=== PATIENT | female | born 1995 | race Caucasian/White ===

== ENCOUNTER 2016-09-07 13:25 | Emergency (ER) | payer OTHER ==
[~2016-09-07] VITALS: Ht 170.2 cm; Wt 62.1 kg
[2016-09-07] MEDS ORDERED: fentaNYL 100 MCG/2 ML INJECTION (J3010) IV ONE (15:45)
[2016-09-07] MEDS ORDERED: NS 1,000 ML IV ONE (15:45)
[2016-09-07] MEDS ORDERED: PROPOFOL 200 MG/20 ML VIAL IV ONE ×2 (15:45→16:15)
[2016-09-07 16:53] VITALS: BP 136/87
--- NOTE | 2016-10-07 19:52 | RO ---
DATE OF PROCEDURE: 09/07/2016 PREOPERATIVE DIAGNOSIS: Food impaction in the esophagus. POSTOPERATIVE DIAGNOSIS: Food impaction in the esophagus. PROCEDURE: Upper gastrointestinal (GI) endoscopy, removal of impacted food. SURGEON: Dr. Edy Hagen [employer] IN[employer]ER: ANESTHESIA: Monitored anesthesia care provided by emergency room physician. ESTIMATED BLOOD LOSS: None. The emergency room physician is Dr. Shasta Syed. DESCRIPTION OF PROCEDURE: Ms. Clements is a healthy 21-year-old female who presented to the emergency room with a sensation of food stuck in her throat. She was eating some grilled chicken early during the day. The patient noticeably uncomfortable and not able to swallow much. Procedure was done in the emergency room area, monitored anesthesia care provided by Dr. Syed, who is emergency room physician. She was monitored throughout the procedure according to hospital policy. She was provided oxygen (O2) via nasal cannula. Once adequate anesthesia was achieved, the videoendoscope was inserted into her mouth, passed through to the upper esophagus. The impacted food was found mid esophagus just about the constriction close to the aortic arch. Using cold forceps, some pieces were removed enough that I was able to push the impacted food down into her esophagus, passed into the stomach. There were no signs of esophagitis. The rest of the stomach and the duodenum was evaluated and was found to be normal. The videoendoscope was removed. The patient was monitored until she was fully awake.
== END 2016-09-07 17:01 | disposition home or self-care (01) ==
LOC: M ED 14:46
DX: K22.2 Esophageal obstruction (principal)
CPT/HCPCS: 43215; 81025; 96374; 96375; 96376; 99285; J3010